=== PATIENT | male | born 1990 | race African-American/Black ===

== ENCOUNTER 2021-12-31 15:48 | Emergency (ER) | payer MEDICAID ==
[~2021-12-31] VITALS: Ht 177.8 cm; Wt 72.0 kg
[2021-12-31 16:00] VITALS: BP 109/73
[2021-12-31] MEDS ORDERED: ACETAMINOPHEN 325MG TABLET PO ONE (17:15)
[2021-12-31 17:31] LABS: BASOPHILS % 0.3 % (0.0-2.0); EOSINOPHILS % 0.1 % (0.0-5.0); HEMATOCRIT. 35.6 % (42.0-52.0); LYMPHOCYTES % 7.4 % (20.0-50.0); MEAN CORPUSCULAR HEMOGLOBIN 29.6 pg (28.0-32.0); MEAN CORPUSCULAR VOLUME 87.9 fL (80.0-94.0); MEAN PLATELET VOLUME 7.4 fl (7.4-10.4); MONOCYTES % 4.4 % (2.0-8.0); NEUTROPHILS % 87.8 % (40.0-76.0); PLATELET 241 x1000/uL (130-400); RED BLOOD CELL COUNT 4.05 mill/uL (4.7-6.1); RED CELL DISTRIBUTION WIDTH 13.1 % (11.6-14.6)
[2021-12-31 17:36] LABS: CHLORIDE 104 mEq/L (98-107)
== END 2021-12-31 20:05 | disposition left against medical advice (07) ==
LOC: ER 16:14
DX: Z53.21 Procedure and treatment not carried out due to patient leaving prior to being seen by health care provider (principal)
CPT/HCPCS: 36415; 71045; 80053; 85025; 99284

== ENCOUNTER 2022-02-20 02:50 | Emergency (ER) | payer MEDICAID ==
[~2022-02-20] VITALS: Ht 188 cm; Wt 90.0 kg
[2022-02-20] MEDS ORDERED: ONDANSETRON HCL 4MG/2ML INJ IV STA (05:07)
[2022-02-20] MEDS ORDERED: MORPHINE SULFATE 4 MG/ML CPJ (NOT FOR IM USE) IV STA (05:07)
[2022-02-20] MEDS ORDERED: FAMOTIDINE 20MG/2ML VIAL IV STA (05:07)
[2022-02-20 05:21] VITALS: BP 138/72
[2022-02-20] MEDS ORDERED: FAMOTIDINE 20MG TABLET PO ONE (05:30)
[2022-02-20 05:37] LABS: CHLORIDE 104 mEq/L (98-107)
[2022-02-20 05:39] LABS: BASOPHILS % 0.3 % (0.0-2.0); HEMATOCRIT. 40.4 % (42.0-52.0); HEMOGLOBIN. 13.4 g/dL (14.0-18.0); MEAN CORPUSCULAR HEMOGLOBIN 29.4 pg (28.0-32.0); MEAN CORPUSCULAR VOLUME 88.8 fL (80.0-94.0); MEAN PLATELET VOLUME 7.7 fl (7.4-10.4); NEUTROPHILS % 83.7 % (40.0-76.0); PLATELET 271 x1000/uL (130-400); RED BLOOD CELL COUNT 4.55 mill/uL (4.7-6.1)
[2022-02-20 05:45] LABS: ETHANOL BLOOD < 10 mg/dL
[2022-02-20 06:00] LABS: PROTHROMBIN TIME 11.1 sec (9.6-11.0)
[2022-02-20] MEDS ORDERED: HYDROCODONE/ACETAMINOPHEN 5/325MG TABLET PO ONE (07:30)
[2022-02-20] MEDS ORDERED: KETOROLAC 30MG/ML VIAL IV ONE (07:30)
[2022-02-20] MEDS ORDERED: ONDANSETRON 4MG ODT PO ONE (07:45)
== END 2022-02-20 08:05 | disposition left against medical advice (07) ==
LOC: ER 02:57
DX: R10.9 Unspecified abdominal pain (principal); Z88.0 Allergy status to penicillin
CPT/HCPCS: 36415; 80053; 80307; 80320; 83690; 85025; 85610; 87426; 96374; 96375; 99284; C9803; J1885; J2270; J2405; Q0162; G0480